=== PATIENT | female | born 2000 | race Two or more races ===

== ENCOUNTER 2024-03-03 11:53 | Inpatient (IN) ==
[2024-03-03] MEDS ORDERED: OXYTOCIN 30 UNITS/NSS 30 UNITS/500 ML BAG IV PRN (12:17)
[2024-03-03] MEDS ORDERED: LIDOCAINE 1% LOCAL 20 ML VIAL INFIL PRN (12:17)
[2024-03-03] MEDS: LACTATED RINGER'S 1,000 ML IV PRN (12:25)
[2024-03-03 12:46] LABS: Hematocrit (blood only) 35.6 % (37.0-47.0); Hemoglobin 11.9 g/dl (12.0-16.0); Mean Corpuscular Hemoglobin 26.9 pg (25.0-34.0); Mean Corpuscular Hgb Conc 33.4 g/dL (32.0-36.0); Mean Corpuscular Volume 80.4 fL (80.0-100.0); Mean Platelet Volume 9.2 fL (9.4-12.4); Platelet Count 331 K/uL (130-400); RDW Coefficient of Variation 14.2 % (11.5-14.5); RDW Standard Deviation 41.7 fL (36.4-46.3); Red Blood Count 4.43 M/uL (4.20-5.40); White Blood Count 14.99 K/ul (4.8-10.8)
[2024-03-03] MEDS: fentANYL 2 MCG/ML BUPIVacaine 0.125%-NSS 100ML BAG ONE (14:04)
[2024-03-03] MEDS: BUPIVACAINE 0.25% PF 30 ML VIAL ONE (14:05)
[2024-03-03] MEDS: LIDOCAINE 2%/EPINEPHRINE 1:200,000 20 ML PF ONE (14:05)
[2024-03-03] MEDS ORDERED: ONDANSETRON INJ 2 MG/ML 2 ML VIAL IV PRN (14:18)
[2024-03-03] MEDS ORDERED: fentANYL 2 MCG/ML BUPIVacaine 0.125%-NSS 100ML BAG EPI PRN (14:18)
[2024-03-03] MEDS ORDERED: NALBUPHINE HCL INJ 10 MG/ML AMP IV PRN (14:18)
[2024-03-03] MEDS ORDERED: BUPIVACAINE 0.25% PF 30 ML VIAL EPI PRN (14:18)
[2024-03-03] MEDS ORDERED: ePHEDrine sulfate 50 MG/ML AMP IV PRN (14:18)
[2024-03-03] MEDS ORDERED: SODIUM CHLORIDE 0.9% PF INJ 10 ML VIAL EPI PRN (14:18)
[2024-03-03] MEDS ORDERED: LIDOCAINE 2% MPF LOCAL 5 ML VIAL EPI PRN (14:18)
[2024-03-03] MEDS ORDERED: NALOXONE HCL 1 MG in SODIUM CHLORIDE 0.9% 1,000 ML IV PRN (14:18)
[2024-03-03] MEDS ORDERED: fentaNYL citrate PF 100 MCG/2 ML VIAL EPI PRN (14:18)
[2024-03-03] MEDS ORDERED: diphenhydrAMINE 50 MG/ML VIAL IV PRN (14:18)
[2024-03-03] MEDS ORDERED: NALOXONE HCL 0.4 MG/1 ML VIAL/CARP IV PRN (14:18)
[2024-03-03] MEDS ORDERED: ROPIVACAINE 0.5% PF 5 MG/ML 20 ML VIAL EPI PRN (14:18)
--- NOTE | 2024-03-03 14:19 | Anesthesiology Consultation ---
Date of Service March 03, 2024 Assessment & Plan Chart Review Chart Review: Patient NOT seen in Pre Admission Testing and Acceptable Risk for Labor Epidural Consults Requested none ASA ASA2 Proposed Anesthesia Anesthesia Type: Labor Epidural Risk / Benefits Reviewed With: PT / POA / Parent / Guardian, Accepts Plan and Informed Consent Obtained History Height/Weight Height: 5 ft 1.02 in Weight: 64.41 kg Allergies Allergy/AdvReac Type Severity Reaction Status Date / Time No Known Allergies Allergy Unverified 03/02/24 15:11 Medications Home Medications Medication Instructions Recorded Confirmed Last Taken ferrous sulfate [Iron (ferrous 1 tab PO DAILY 02/29/24 03/03/24 02/28/24 07:00 sulfate)] omega-3 acid ethyl esters 1 tab PO DAILY 02/29/24 03/03/24 02/28/24 07:00 Active Medications Generic Name Dose Route Start Last Admin Trade Name Freq PRN Reason Stop Dose Admin Lactated Ringer's 1,000 mls @ 125 mls/hr 03/03/24 12:17 03/03/24 13:31 Lr IV 03/05/24 12:16 125 mls/hr .Q8H PRN Administration L&D Protocol Protocol Past Medical History Medical History No known health problems Exercise / Class Metabolic Activity II 4-5 Yardwork/Stairs/Walk up hill Past Family History Family History Mother Hypertension Grandmother (Maternal) Hypertension Past Surgical History Surgical History (Updated 02/26/24 @ 16:57 by Caitlin Jain MD, FACOG) No history of previous surgery Past Anesthesia History No Hx of Anesthesia Complications and No Family Hx of Anesthesia Complications History of PONV No Hx of PONV and No Hx of Motion Sickness Social History Smoking Status: Never smoker Hx Alcohol Use: No Hx Substance Use: No substance use type: does not use Physical Exam Vital Signs Last Vital Signs Temp 36.9 C 03/03/24 12:38 Pulse 108 H 03/03/24 14:14 Resp 18 03/03/24 12:38 BP 115/74 03/03/24 14:03 Pulse Ox 100 03/03/24 14:14 ENMT Mouth: no dentition abnormality Thyromental Distance: > or= 3.5 Finger Breadths Mallampati Class: II Neck normal visual inspection Respiratory normal respiratory effort Auscultation: lungs clear to auscultation bilaterally Cardiovascular Rate/Rhythm: regular rate and regular rhythm Psychiatric Orientation: alert Testing Laboratory Results 03/03/24 12:28
[2024-03-03] MEDS: ePHEDrine sulfate 50 MG/ML AMP ONE (15:25)
[2024-03-03] MEDS: fentaNYL citrate PF 100 MCG/2 ML VIAL ONE (15:26)
[2024-03-03] MEDS: SODIUM CHLORIDE 0.9% PF INJ 10 ML VIAL ONE (15:26)
[2024-03-03] MEDS: OXYTOCIN 30 UNITS/NSS 30 UNITS/500 ML BAG IV PRN ×2 (15:30→19:00)
[2024-03-03] MEDS: fentaNYL citrate PF 100 MCG/2 ML VIAL EPI STA (16:02)
[2024-03-03] MEDS: SODIUM CHLORIDE 0.9% PF INJ 10 ML VIAL EPI STA (16:02)
[2024-03-03] MEDS: LIDOCAINE 2%/EPINEPHRINE 1:200,000 20 ML PF EPI STA (16:02)
[2024-03-03] MEDS: BUPIVACAINE 0.25% PF 30 ML VIAL EPI STA (16:03)
--- NOTE | 2024-03-03 18:19 | Delivery Summary ---
Vaginal Delivery Summary Date of Service March 03, 2024 Vaginal Delivery Summary and 1st Degree LAC Spontaneous vaginal delivery the patient arrived in early labor had little care but did have several visits with us she was at term group B strep negative when she has an epidural artificial rupture of membranes for thin meconium and eventually Pitocin started to augment she then delivered delivering a baby in occiput anterior position after delivery of the head no nuchal cord gentle traction the baby no excessive force live vigorous male infant. Mouth and nares were suctioned Cord blood obtained baby was vigorous placenta removed with gentle traction no cord blood been obtained before Small first-degree tear repaired with 3-0 Vicryl Quantitative blood loss 223ml [facility] Vaginal Delivery Charge Delivery Type Details: and 1st Degree LAC
[2024-03-03] MEDS ORDERED: bisacodyL 10 MG SUPP PR PRN (18:21)
[2024-03-03] MEDS ORDERED: oxyCODONE/ACETAMINOPHEN 5mg/325mg TAB PO PRN (18:21)
[2024-03-03] MEDS ORDERED: DIPHTHER/TETAN/PERTUS Vaccine (Tdap, Adol/Adult) 0.5mL IM ONE (18:21)
[2024-03-03] MEDS ORDERED: HYDROCORTISONE ACETATE 25 MG SUPP PR PRN (18:21)
[2024-03-03] MEDS: DOCUSATE SODIUM 100 MG CAP PO SCH (21:15)
[2024-03-04] MEDS: IBUPROFEN 600 MG TAB PO PRN (01:19)
[2024-03-04] MEDS: BENZOCAINE 20% SPRY 85 APPLN/85 GM CAN EXT PRN (01:19)
[2024-03-04] MEDS: ACETAMINOPHEN 325 MG TAB PO PRN (01:19)
--- NOTE | 2024-03-04 01:51 | Anesthesia Procedure Note ---
Date of Service March 04, 2024 Anesthesia Post Epidural Note Vital Signs Vital Signs: Temp Pulse Resp BP Pulse Ox O2 Del Method 98.2 F 73 18 118/78 99 Room Air 03/04/24 01:03/04/24 01:03/04/24 01:03/04/24 01:03/04/24 01:03/04/24 01:10 Pain Intensity Perineal: Pain Intensity: 8 Notes Mental Status: alert / awake / arousable and participated in evaluation Nausea / Vomiting: adequately controlled Pain: adequately controlled Airway Patency, RR, SpO2: stable & adequate BP & HR: stable & adequate Hydration State: stable & adequate Neuraxial Anesthesia: was administered and sensory block is resolving Anesthetic Complications: no major complications apparent and Pt Satisfied with anesthetic care Epidural: Removed without complications and With tip intact
[2024-03-04 06:56] LABS: Hematocrit (blood only) 29.3 % (37.0-47.0); Hemoglobin 9.7 g/dl (12.0-16.0); Mean Corpuscular Hgb Conc 33.1 g/dL (32.0-36.0); Mean Corpuscular Volume 81.6 fL (80.0-100.0); Mean Platelet Volume 9.7 fL (9.4-12.4); Platelet Count 283 K/uL (130-400); RDW Coefficient of Variation 14.2 % (11.5-14.5); RDW Standard Deviation 42.1 fL (36.4-46.3); Red Blood Count 3.59 M/uL (4.20-5.40); White Blood Count 18.47 K/ul (4.8-10.8)
[2024-03-04] MEDS: PRENATAL VITAMIN 1 TAB PO SCH (08:23)
--- NOTE | 2024-03-04 08:47 | Obstetrical Progress Note ---
Date of Service March 04, 2024 Assessment & Plan (1) Supervision of normal intrauterine in primigravida: ppd 1 doing well, cont current care Subjective Ambulation: ambulating normally Voiding: no voiding problems Passing Gas:: Yes Diet Tolerance:: regular diet Lochia:: Small Feeding Type:: breast feeding Physical Exam Constitutional WD/WN, vitals as above well developed and well nourished Respiratory normal respiratory effort, lungs clear to auscultation normal respiratory effort Cardiovascular RRR, no murmur, no edema Gastrointestinal (Abdomen) normal bowel sounds, soft, nontender, no hepatosplenomegaly Results & Data Vital Signs (Past 12 Hours) Vital Signs Temp Pulse Resp BP Pulse Ox O2 Del Method 03/04/24 07:31 98.1 F 80 16 114/65 99 Room Air 03/04/24 04:45 97.9 F 78 16 101/63 98 Room Air 03/04/24 01:10 98.2 F 73 18 118/78 99 Room Air 03/03/24 22:57 87 03/03/24 21:00 99.0 F 99 H 18 120/82 99 Room Air
[2024-03-04 11:57] VITALS: O2SAT 98
[2024-03-04] MEDS: bisacodyL 5 MG TABEC PO SCH (20:42)
[2024-03-05 00:44] VITALS: RESP 16
[2024-03-05 07:04] LABS: Hematocrit (blood only) 31.8 % (37.0-47.0); Hemoglobin 10.3 g/dl (12.0-16.0)
--- NOTE | 2024-03-05 07:42 | Obstetrical Progress Note ---
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 she wishes to go home we will plan this for later in the day Subjective Ambulation: ambulating normally Voiding: no voiding problems Passing Gas:: Yes Diet Tolerance:: regular diet Lochia:: Small Feeding Type:: breast feeding Physical Exam Constitutional WD/WN, vitals as above well developed and well nourished Respiratory normal respiratory effort, lungs clear to auscultation normal respiratory effort Cardiovascular RRR, no murmur, no edema Gastrointestinal (Abdomen) normal bowel sounds, soft, nontender, no hepatosplenomegaly Results & Data Vital Signs (Past 12 Hours) Vital Signs Temp Pulse Resp BP Pulse Ox O2 Del Method 03/05/24 00:20 99.0 F 89 16 107/68 98 Room Air 03/04/24 19:45 92 H 18 117/75 98 Room Air
[2024-03-05 07:49] VITALS: BP 126/77; PULSE 78; TEMP 98.2
== END 2024-03-05 12:33 | disposition home or self-care (01) | DRG 807 ==
LOC: OPB 11:53 → 4S1 11:54 → 4E2 20:50

== ENCOUNTER 2025-05-21 05:12 | Inpatient (IN) ==
[2025-05-21] MEDS ORDERED: OXYTOCIN 30 UNITS/NSS 30 UNITS/500 ML BAG IV PRN ×2 (05:56→12:19)
[2025-05-21] MEDS ORDERED: LIDOCAINE 1% LOCAL 20 ML VIAL INFIL PRN (05:56)
[2025-05-21 06:33] LABS: Hematocrit (blood only) 32.5 % (37.0-47.0); Hemoglobin 10.7 g/dL (12.0-16.0); Mean Corpuscular Hemoglobin 25.7 pg (25.0-34.0); Mean Corpuscular Volume 77.9 fL (80.0-100.0); Platelet Count 382 K/uL (130-400); RDW Standard Deviation 40.1 fL (36.4-46.3); Red Blood Count 4.17 M/uL (4.20-5.40); White Blood Count 10.80 K/ul (4.8-10.8)
--- NOTE | 2025-05-21 07:34 | History & Physical Report ---
Date of Service May 21, 2025 Assessment & Plan (1) PROM (premature rupture of membranes): (2) 38 weeks gestation of : Plan admit, iv, labs. add pitocin. pt agrees. fhts categ 1. leaf size picker used. Admission and Anticipated Discharge Date Admission Date: May 21, 2025 History of Present Illness Chief Complaint: amie feliz Primary Care Provider: [facility] 25yo at 38+wks zulma presents to LD with PROM @ 430am, clear. She notes some ctx, not painful. No vb. +FM. PNC uncomplicated. Needs varivax pp. OBH: x 1 GYNH: no stds. Allergies Allergy/AdvReac Type Severity Reaction Status Date / Time No Known Allergies Allergy Verified 05/18/25 18:27 Home Medications Medication Instructions Recorded Confirmed Type vitamin-ferrous sulfate 1 tab PO DAILY 05/21/25 05/21/25 History 27 mg iron-folic acid 0.8 mg tablet Patient History Medical History No known health problems Surgical History No history of previous surgery Family History Mother Hypertension Grandmother (Maternal) Hypertension Denies family history of Ovarian cancer Breast cancer Colorectal cancer Social History (Updated 05/18/25 @ 18:27 by Kimberly Patiño RN) Smoking Status: Never smoker Tobacco Type: Cigarettes Do You Dip or Chew Tobacco: No; Hx Alcohol Use: No Hx Substance Use: No Preferred Language: Turkish Communication Ability: Effective Communication Tools: IPad Graduate Student Instructor Required: Yes Beliefs That Will Affect Care: None marital status: marital status details: Spouse: Paul Jaramillo(21) [phone] Current Living Situation: Spouse and Family Current Living Situation Comment: , son, two brothers, and mother in law current occupational status: unemployed current occupation: homemaker Other Information That Helps Us Care for You: No Feels Safe at Home: Yes Safety Concerns: Feels Safe At This Time Assistive Devices: None Physical Exam Constitutional: WD/WN, vitals as above Respiratory: normal respiratory effort, lungs clear to auscultation Cardiovascular: Rate/Rhythm: regular rate and regular rhythm Gastrointestinal (Abdomen): soft gravid nt efw 8-9# Musculoskeletal: no edema nontender calves Neurologic: grossly normal Psychiatric: A+Ox3, euthymic affect Genitourinary: Manual OB Exam: + cervical dilation (3-4 cm per nurse) OB Exam Monitor Tracing: + external FHT monitor used, + external uterine monitor used (q2-5), + category I and + normal FHT variability Results & Data Vital Signs (Past 12 Hours) Vital Signs Temp Pulse Resp BP 05/21/25 07:09 98.2 F 18 05/21/25 07:07 84 05/21/25 07:07 120/70 05/21/25 05:26 98.1 F 18 05/21/25 05:21 94 H 116/72 Coding Level of Care Code None Diagnoses PROM (premature rupture of membranes) O42.90 38 weeks gestation of Z3A.38
[2025-05-21] MEDS: LACTATED RINGER'S 1,000 ML IV PRN (07:46)
[2025-05-21] MEDS: OXYTOCIN 30 UNITS/NSS 30 UNITS/500 ML BAG IV PRN (07:46)
[2025-05-21] MEDS: fentANYL 2 MCG/ML BUPIVacaine 0.125%-NSS 100ML BAG ONE (09:53)
[2025-05-21] MEDS ORDERED: NALOXONE HCL 1 MG in SODIUM CHLORIDE 0.9% 1,000 ML IV PRN (10:03)
[2025-05-21] MEDS ORDERED: SODIUM CHLORIDE 0.9% PF INJ 10 ML VIAL EPI PRN (10:03)
[2025-05-21] MEDS ORDERED: LIDOCAINE 2% MPF LOCAL 5 ML VIAL EPI PRN (10:03)
[2025-05-21] MEDS ORDERED: NALOXONE HCL 0.4 MG/1 ML VIAL/CARP IV PRN (10:03)
[2025-05-21] MEDS ORDERED: NALBUPHINE HCL INJ 10 MG/ML AMP IV PRN (10:03)
[2025-05-21] MEDS ORDERED: BUPIVACAINE 0.25% PF 30 ML VIAL EPI PRN (10:03)
[2025-05-21] MEDS ORDERED: PROMETHAZINE 6.25 MG/50.25 ML BAG IV PRN (10:03)
[2025-05-21] MEDS ORDERED: fentANYL 2 MCG/ML BUPIVacaine 0.125%-NSS 100ML BAG EPI PRN (10:03)
[2025-05-21] MEDS ORDERED: ROPIVACAINE 0.5% PF 5 MG/ML 20 ML VIAL EPI PRN (10:03)
[2025-05-21] MEDS ORDERED: ONDANSETRON INJ 2 MG/ML 2 ML VIAL IV PRN (10:03)
[2025-05-21] MEDS ORDERED: diphenhydrAMINE 50 MG/ML VIAL IV PRN (10:03)
--- NOTE | 2025-05-21 10:03 | Anesthesiology Consultation ---
Date of Service May 21, 2025 Assessment & Plan Chart Review Chart Review: Patient NOT seen in Pre Admission Testing and Acceptable Risk for Labor Epidural Consults Requested none ASA ASA2 Proposed Anesthesia Anesthesia Type: Labor Epidural Risk / Benefits Reviewed With: PT / POA / Parent / Guardian, Accepts Plan and Informed Consent Obtained History Height/Weight Height: 5 ft 1.02 in Weight: 67.585 kg Allergies Allergy/AdvReac Type Severity Reaction Status Date / Time No Known Allergies Allergy Verified 05/18/25 18:27 Medications Home Medications Medication Instructions Recorded Confirmed Last Taken vitamin-ferrous sulfate 1 tab PO DAILY 05/21/25 05/21/25 05/20/25 27 mg iron-folic acid 0.8 mg tablet Active Medications Generic Name Dose Route Start Last Admin Trade Name Freq PRN Reason Stop Dose Admin Lactated Ringer's 1,000 mls @ 125 mls/hr 05/21/25 05:56 05/21/25 09:45 Lr IV 05/23/25 05:55 125 mls/hr .Q8H PRN Infusion L&D Protocol Protocol Oxytocin 30 units in 500 mls @ 7 mls/hr 05/21/25 07:33 05/21/25 09:32 Pitocin 30 Units/Nss IV 05/23/25 07:32 0.42 units/hr .Q24H PRN 7 mls/hr Labor Induction/Augmentation Titration Protocol 0.42 UNITS/HR Past Medical History Medical History No known health problems Exercise / Class Metabolic Activity II 4-5 Yardwork/Stairs/Walk up hill Past Family History Family History Mother Hypertension Grandmother (Maternal) Hypertension Denies family history of Ovarian cancer Breast cancer Colorectal cancer Past Surgical History Surgical History No history of previous surgery Past Anesthesia History No Hx of Anesthesia Complications and No Family Hx of Anesthesia Complications History of PONV No Hx of PONV and No Hx of Motion Sickness Social History Smoking Status: Never smoker Do You Dip or Chew Tobacco: No Hx Alcohol Use: No Hx Substance Use: No substance use type: does not use Physical Exam Vital Signs Last Vital Signs Temp 36.7 C 05/21/25 09:34 Pulse 97 H 05/21/25 10:00 Resp 18 05/21/25 09:34 BP 116/68 05/21/25 10:00 Pulse Ox 98 05/21/25 10:00 ENMT Mouth: no dentition abnormality Thyromental Distance: > or= 3.5 Finger Breadths Mallampati Class: II Neck normal visual inspection Respiratory normal respiratory effort Auscultation: lungs clear to auscultation bilaterally Cardiovascular Rate/Rhythm: regular rate and regular rhythm Psychiatric Orientation: alert Testing Laboratory Results 05/21/25 06:00
[2025-05-21] MEDS: BUPIVACAINE 0.25% PF 30 ML VIAL ONE (10:05)
[2025-05-21] MEDS: LIDOCAINE 2%/EPINEPHRINE 1:200,000 20 ML PF ONE (10:05)
[2025-05-21] MEDS: SODIUM CHLORIDE 0.9% PF INJ 10 ML VIAL ONE (10:05)
[2025-05-21] MEDS: LIDOCAINE 2%/EPINEPHRINE 1:200,000 20 ML PF EPI STA (10:11)
[2025-05-21] MEDS: BUPIVACAINE 0.25% PF 30 ML VIAL EPI STA (10:11)
[2025-05-21] MEDS: SODIUM CHLORIDE 0.9% PF INJ 10 ML VIAL EPI STA (10:12)
[2025-05-21] MEDS ORDERED: HYDROCORTISONE ACETATE 25 MG SUPP PR PRN (12:19)
--- NOTE | 2025-05-21 12:21 | Delivery Summary ---
Vaginal Delivery Summary Date of Service May 21, 2025 Vaginal Delivery Summary [facility] Pre-delivery diagnoses: IUP at 38 weeks 5 days Post-delivery diagnoses: Same Procedure: Spontaneous vaginal delivery Surgeon: Lexy Combs MD Complications: none Findings: Viable female . Apgars: 8/9. Weight pending, please see nursery records Estimated QBL: 152 cc Description of delivery: The patient progressed to complete with epidural anesthesia. She then began to push. She spontaneously vaginally delivered a viable from the cephalic presentation. The head delivered followed by anterior shoulder, posterior shoulder, then by the body. No nuchal. The baby w as placed on mother's abdomen and a spontaneous cry was heard. Delayed cord clamping was employed, and the cord was doubly clamped and cut. Cord blood was obtained. The placenta was delivered spontaneously intact with a 3-vessel cord. The uterus and vagina were swept of clots and debris. IV pitocin was given. The uterus became firm. The cervix, vagina, and perineum were inspected. No lacerations requiring repair were noted. Excellent hemostasis was observed. The mother and baby are recovering in stable and good condition in the room. Sponge, needle and instrument counts were correct x 2. [facility] Vaginal Delivery Charge Delivery Type Details:
--- NOTE | 2025-05-21 13:27 | Anesthesia Procedure Note ---
Date of Service May 21, 2025 Anesthesia Post Epidural Note Vital Signs Vital Signs: Temp Pulse Resp BP Pulse Ox 36.7 C 90 18 122/75 100 05/21/25 09:34 05/21/25 13:25 05/21/25 13:10 05/21/25 13:10 05/21/25 13:25 Pain Intensity Abdomen: Pain Intensity: 0 Notes Mental Status: alert / awake / arousable Nausea / Vomiting: adequately controlled Pain: adequately controlled Airway Patency, RR, SpO2: stable & adequate BP & HR: stable & adequate Hydration State: stable & adequate Neuraxial Anesthesia: was administered and sensory block is resolving Anesthetic Complications: no major complications apparent and Pt Satisfied with anesthetic care Epidural: Removed without complications and With tip intact
[2025-05-21] MEDS: DIPHTHER/TETAN/PERTUS Vaccine (Tdap, Adol/Adult) 0.5mL IM ONE (17:10)
[2025-05-21] MEDS: IBUPROFEN 600 MG TAB PO PRN (19:12)
[2025-05-21] MEDS: BENZOCAINE 20% SPRY 85 APPLN/85 GM CAN EXT PRN (19:13)
[2025-05-21] MEDS: DOCUSATE SODIUM 100 MG CAP PO SCH (21:04)
[2025-05-21] MEDS: ACETAMINOPHEN 325 MG TAB PO PRN (23:36)
[2025-05-22 03:24] VITALS: RESP 18; O2SAT 99
--- NOTE | 2025-05-22 05:59 | Obstetrical Progress Note ---
Date of Service May 22, 2025 Assessment & Plan (1) care following vaginal delivery: Plan 25 yo post- day 1 s/p Feels well today. Vital signs stable Continue post- care Encourage ambulation and Pain controlled with ibuprofen Hgb stable Varicella non-immune, vaccination ordered to be given today Discharge home today, follow up with Dr. Combs in 6 weeks. Admission and Anticipated Discharge Date Admission Date: May 21, 2025 Supervising Physician Co-Signing Physician Notes Resident Physician Supervision Note: I interviewed and examined the patient. Discussed with Dr. Burton and agree with findings and plan as documented in the note. Any exceptions or clarifications are listed here: PPD#1 from . Doing well, meeting milestones. Bottle feeding. Umbilicus firm -3. Plan for DC home; varicella vaccine ordered since non-immune. Documented By: Lexy Combs MD Subjective 25 yo post- day 1 s/p Ambulation: ambulating normally Voiding: no voiding problems Passing Gas:: No Passing Stool:: Yes Diet Tolerance:: regular diet Lochia:: Small Feeding Type:: bottle feeding Current Pain Level: 5/10 Resting comfortably this AM in NAD. Denies HERNÁNDEZ, CP, SOB, N/V/D, LE pain/swelling. Review of Systems Review of Systems: All systems reviewed & are unremarkable except as noted in HPI & below Physical Exam Physical Exam: General: patient resting comfortably, NAD, non-toxic in appearance, AA&O x 4, answers questions appropriately. Skin: warm, dry, intact HEENT: NC/AT, anicteric sclera, conjunctiva without injection, moist mucus membranes. Heart: +S1/S2, regular, no m/r/g Lungs: equal air entry bilaterally, no rales/rhonchi/wheezes Abd: +BS, soft, NT/ND, uterine fundus firm 3 FB below umbilicus Ext: warm, no clubbing/cyanosis or edema, Aurelia's neg. Neuro: nonfocal, patient AA&O x 4, speech intact, no facial droop, moving all extremities on command. Results & Data Vital Signs (Past 12 Hours) Vital Signs Temp Pulse Resp BP Pulse Ox O2 Del Method 05/22/25 03:22 36.4 C L 77 18 115/69 99 Room Air 05/21/25 23:30 36.7 C 86 17 99/66 L 98 Room Air 05/21/25 19:20 36.4 C L 92 H 18 107/68 99 Room Air Laboratory Results Lab Results OB Labs: Blood Type A Positive 11/19/24 Antibody Screen NEGATIVE 11/19/24 Hgb 10.7 g/dl (12.0-16.0) L 04/09/25 Hct 31.7 % (37.0-47.0) L 04/09/25 MCV 80.9 fL (80.0-100.0) 04/09/25 Plt Count 305 K/uL (130-400) 04/09/25 VZV IgG Antibody <1.00 S/CO L 11/19/24 Rubella IgG Antibody Immune (Immune) 11/19/24 Treponema pallidum Ab Negative (Negative) 03/11/25 Hep Bs Antigen Negative (Negative) 11/19/24 Hepatitis C Antibody Negative (Negative) 11/19/24 HIV 1&2 Ab/P24 Ag 4thGn Negative (Negative) 11/19/24 Glucose 1 Hr 50 gm 87 mg/dl (70-130) 03/11/25 Maternal Serum AFP 38.1 ng/mL 12/17/24 OB Optional Labs: Chlamydia trachomatis RNA Not Detected (NotDetected) 11/19/24 Neisseria gonorrhoeae RNA Not Detected (NotDetected) 11/19/24 Thyroid Stimulating Hormone (TSH) 0.190 uIu/ml (0.300-4.500) L 11/04/24 Alpha Fetoprotein Triple Screen SEE NOTE 12/17/24 Resident Activity Tracking Resident Involvement: Resident Care Provided Care Provided: OB Delivery
[2025-05-22] MEDS: PRENATAL VITAMIN 1 TAB PO SCH (08:38)
[2025-05-22 09:48] VITALS: BP 119/73; PULSE 75; TEMP 97.3
== END 2025-05-22 17:30 | disposition home or self-care (01) | DRG 807 ==
LOC: OPB 05:12 → 4S1 05:14 → 4E2 14:32